=== PATIENT | male | born 1960 ===

== ENCOUNTER 2016-09-29 19:05 | Emergency (ER) | payer MEDICAID ==
[2016-09-29] MEDS ORDERED: Sodium Chloride 0.9% 1,000 ML IV STA ×2 (20:15→22:09)
--- NOTE | 2016-09-29 20:19 | ED PDOC ---
HPI: Back Time Seen by Provider: 09/29/16 20:15 Chief Complaint (Nursing): Male Genitourinary Chief Complaint (Provider): right back pain History Per: Patient History/Exam Limitations: no limitations Onset/Duration Of Symptoms: Days (1) Current Symptoms Are (Timing): Still Present Quality Of Discomfort: "Pain" Additional History Per: Patient Additional Complaint(s): 56 y/o male history of hypothyroid presents with right lower back pain x 1 day. Associated radiation of pain to right flank, right groin. Patient states he has had increased urine frequency/decreased stream x 3 days with some mild burning. Denies fever, nausea/vomiting, chest pain, shortness of breath, palpitations, changes in bowel movements, recent travel, sick contacts. No relief with Ibuprofen taken 3 hours prior to arrival. Past Medical History Reviewed: Historical Data, Nursing Documentation, Vital Signs Vital Signs: Last Vital Signs Temp 98.6 F 09/29/16 19:08 Pulse 74 09/29/16 19:08 Resp 18 09/29/16 19:08 BP 154/108 H 09/29/16 19:08 Pulse Ox 100 09/29/16 19:08 - Medical History PMH: Hypothyroidism - Surgical History Surgical History: Cholecystectomy - Family History Family History: States: Unknown Family Hx - Living Arrangements Living Arrangements: With Family - Home Medications Home Medications: Ambulatory Orders Medication Instructions Recorded Cyclobenzaprine [Cyclobenzaprine 10 mg PO Q8 PRN #9 tab 09/18/15 HCl] Ibuprofen 600 mg PO Q6 PRN #20 tablet 09/18/15 traMADol [Ultram] 50 mg PO TID PRN #12 tab 09/18/15 Ondansetron ODT [Zofran ODT] 4 mg PO Q8 PRN #10 odt 09/29/16 Tamsulosin [Flomax] 0.4 mg PO DAILY #10 cap 09/29/16 oxyCODONE/Acetaminophen [Percocet 1 ea PO Q6 PRN #10 tab 09/29/16 5/325 mg Tab] - Allergies Allergies/Adverse Reactions: Allergies Allergy/AdvReac Type Severity Reaction Status Date / Time No Known Allergies Allergy Verified 09/18/15 09:25 Review of Systems ROS Statement: Except As Marked, All Systems Reviewed And Found Negative Gastrointestinal: Positive for: Abdominal Pain Genitourinary Male: Positive for: Frequency Musculoskeletal: Positive for: Back Pain Physical Exam - Reviewed Nursing Documentation Reviewed: Yes Vital Signs Reviewed: Yes - Physical Exam Appears: Positive for: Well, Non-toxic, No Acute Distress Head Exam: Positive for: ATRAUMATIC, NORMAL INSPECTION, NORMOCEPHALIC Skin: Positive for: Normal Color Eye Exam: Positive for: Normal appearance ENT: Positive for: Normal ENT Inspection Cardiovascular/Chest: Positive for: Regular Rate, Rhythm Respiratory: Positive for: Normal Breath Sounds Gastrointestinal/Abdominal: Positive for: Bowel Sounds, Soft, Tenderness (right flank) Back: Positive for: R CVA Tenderness Extremity: Positive for: Normal ROM Neurologic/Psych: Positive for: Alert, Oriented - Laboratory Results Result Diagrams: 09/29/16 20:38 09/29/16 20:38 - ECG O2 Sat by Pulse Oximetry: 100 - Progress ED Course And Treament: labs, urine, IV fluids, IV morphine, CT renal protocol ABDOMEN: Liver: Fatty infiltration. Gallbladder and bile ducts: Cholecystectomy. No ductal dilation. Pancreas: Unremarkable. No ductal dilation. Spleen: No splenomegaly. Adrenals: No mass. Kidneys and ureters: Few small calculi within RIGHT kidney. [id number] pelvocaliectasis of RIGHT kidney. Mild to moderately dilated RIGHT ureter. 0.3 x 0.2 x 0.2 cm calculus within RIGHT distal ureter. Stomach and bowel: Underdistention of LEFT colon. No definite mural thickening. No obstruction. Appendix: Normal caliber. No inflammation. PELVIS: Bladder: Unremarkable. No stones. Reproductive: Unremarkable as visualized. ABDOMEN and PELVIS: Intraperitoneal space: No significant fluid collection. No free air. Bones/joints: No acute fracture. Soft tissues: Unremarkable. Vasculature: Unremarkable. No aneurysm. Lymph nodes: No pathologically enlarged lymph nodes. IMPRESSION: 1. RIGHT distal ureteral calculus with [id number] hydroureteronephrosis. 2. Incidental/non-acute findings are described above. On re-eval, patient states pain resolved, tolerating PO without difficulty. Patient educated on findings, discharged with rx Percocet, Zofran, Flomax. Patient states he has ibuprofen 800mg at home; advised to take Q6 PRN moderate pain. Patient educated on risk of narcotic abuse/dependence/overdose; advised to take as needed for severe pain only. Patient demonstrates understanding. Strainer given to patient with instructions on use. Follow up urology. Return to ED for worsening/concerning symptoms. Disposition - Clinical Impression Clinical Impression: Kidney stone on right side - Patient ED Disposition Is Patient to be Admitted: No Counseled Patient/Family Regarding: Studies Performed, Diagnosis, Need For Followup, Rx Given - Disposition Referrals: Lydia Blum MD [Medical Doctor] - Disposition: Routine/Home Disposition Time: 23:39 Condition: IMPROVED Additional Instructions: Follow up with Urology. Drink plenty of fluids. Take Ibuprofen every 6 hours as needed for moderate pain. Take Percocet as directed, as needed for severe pain only. Take other medications as directed. Return to ED for worsening/concerning symptoms. Prescriptions: Ondansetron ODT [Zofran ODT] 4 mg PO Q8 PRN #10 odt PRN Reason: Nausea/Vomiting oxyCODONE/Acetaminophen [Percocet 5/325 mg Tab] 1 ea PO Q6 PRN #10 tab PRN Reason: Pain, Severe (8-10) Tamsulosin [Flomax] 0.4 mg PO DAILY #10 cap Instructions: Kidney Stones (ED), Renal Colic (ED), How to Strain Your Urine ( ED)
[2016-09-29 20:47] LABS: BASO # 0.1 K/uL (0.0-0.2); BASO % 0.5 % (0.0-2.0); EOS # 0.3 K/uL (0.0-0.7); EOS % 2.3 % (0.0-4.0); HEMATOCRIT 42.3 % (35.0-51.0); LYMPH # 4.1 K/uL (1.0-4.3); LYMPH % 30.2 % (20.0-40.0); MEAN PLATELET VOLUME 7.9 fl (7.2-11.7); MONO # 1.8 K/uL (0.0-0.8); MONO % 13.6 % (0.0-10.0); NEUT # 7.2 K/uL (1.8-7.0); NEUT % 53.4 % (50.0-75.0); RED CELL DISTRIBUTION WIDTH 13.7 % (11.5-14.5); WHITE BLOOD COUNT 13.4 K/uL (4.8-10.8)
[2016-09-29 20:55] LABS: RBC URINE 8 /hpf (0-3); URINE BILIRUBIN NEGATIVE (NEGATIVE); URINE BLOOD SMALL (NEGATIVE); URINE CALCIUM OXALATE CRYSTALS OCC /hpf (<OCC); URINE COLOR YELLOW (YELLOW); URINE GLUCOSE (UA) NEG (Normal); URINE KETONE NEGATIVE (NEGATIVE); URINE LEUKOCYTE ESTERASE TRACE Leu/uL (Negative); URINE PROTEIN 30 mg/dL (NEGATIVE); URINE UROBILINOGEN 0.2-1.0 mg/dL (0.2-1.0); WBC URINE 2 /hpf (0-5)
[2016-09-29 20:59] LABS: ALB/GLOB RATIO 1.2 (1.0-2.1); ALKALINE PHOSPHATASE 96 U/L (38-126); ALT/SGPT 52 U/L (21-72); AST/SGOT 66 U/L (17-59); BILIRUBIN,TOTAL 0.7 mg/dl (0.2-1.3); BLOOD UREA NITROGEN 20 mg/dl (9-20); CALCIUM 9.4 mg/dL (8.4-10.2); CARBON DIOXIDE 28 mmol/L (22-30); CHLORIDE 102 mmol/L (98-107); GFR AFRICAN-AMERICAN > 60; GLUCOSE,RANDOM 113 mg/dL (75-110); POTASSIUM 4.1 MMOL/L (3.6-5.0); SODIUM 141 mmol/l (132-148); TOTAL PROTEIN 8.2 G/DL (6.3-8.2)
--- NOTE | 2016-09-29 21:27 | CT ---
EXAM: CT Abdomen and Pelvis Without Intravenous Contrast CLINICAL HISTORY: 56 years old, male; Pain; Abdominal pain; Flank; Right; Prior surgery; Surgery date: 6+ months; Surgery type: Gb removed about 10 yrs ago; Additional info: Right flank pain TECHNIQUE: Axial computed tomography images of the abdomen and pelvis without intravenous contrast. This CT exam was performed using one or more of the following dose reduction techniques: automated exposure control, adjustment of the mA and/or kV according to patient size, and/or use of iterative reconstruction technique. Coronal and sagittal reformatted images were created and reviewed. COMPARISON: No relevant prior studies available. FINDINGS: Lower thorax: Mild atelectasis/scarring. ABDOMEN: Liver: Fatty infiltration. Gallbladder and bile ducts: Cholecystectomy. No ductal dilation. Pancreas: Unremarkable. No ductal dilation. Spleen: No splenomegaly. Adrenals: No mass. Kidneys and ureters: Few small calculi within RIGHT kidney. [id number] pelvocaliectasis of RIGHT kidney. Mild to moderately dilated RIGHT ureter. 0.3 x 0.2 x 0.2 cm calculus within RIGHT distal ureter. Stomach and bowel: Underdistention of LEFT colon. No definite mural thickening. No obstruction. Appendix: Normal caliber. No inflammation. PELVIS: Bladder: Unremarkable. No stones. Reproductive: Unremarkable as visualized. ABDOMEN and PELVIS: Intraperitoneal space: No significant fluid collection. No free air. Bones/joints: No acute fracture. Soft tissues: Unremarkable. Vasculature: Unremarkable. No aneurysm. Lymph nodes: No pathologically enlarged lymph nodes. IMPRESSION: 1. RIGHT distal ureteral calculus with [id number] hydroureteronephrosis. 2. Incidental/non-acute findings are described above.
[2016-09-30 00:39] VITALS: BP 139/96; PULSE 82; RESP 16; TEMP 98.4; O2SAT 98
== END 2016-09-30 00:42 | disposition home or self-care (01) ==
LOC: H.ER 19:05
DX: N20.1 Calculus of ureter (principal); E03.9 Hypothyroidism, unspecified

== ENCOUNTER 2016-12-02 08:53 | Day surgery (SDC) | payer MEDICAID ==
[2016-12-02] MEDS ORDERED: Lactated Ringer's 500 ML IV ONE (10:03)
[2016-12-02] MEDS ORDERED: Propofol 10 mg/ml Inj (20 ML) ONE (11:53)
[2016-12-02] MEDS ORDERED: ePHEDrine 50 mg/ml Inj ONE (12:14)
[2016-12-02 12:47] VITALS: PULSE 61; TEMP 97
[2016-12-02 13:06] VITALS: BP 106/71; RESP 14; O2SAT 96
== END 2016-12-02 13:16 | disposition home or self-care (01) ==
LOC: H.ENDO 08:53
PROVIDERS: ATTEND Internal Medicine Gastroenterology
DX: K62.5 Hemorrhage of anus and rectum (principal); K64.8 Other hemorrhoids; D12.3 Benign neoplasm of transverse colon; K57.30 Diverticulosis of large intestine without perforation or abscess without bleeding; G47.33 Obstructive sleep apnea (adult) (pediatric); E03.9 Hypothyroidism, unspecified
CPT/HCPCS: 45380; 88305; J2001; J2704; J7120